=== PATIENT | female | born 1955 | race Caucasian/White ===

== ENCOUNTER → 2018-02-10 | Day surgery (SDC) | payer MEDICARE ==
[~2018-02-10] MED LIST: ALPR0.5T6 PO; ASPI-630 PO; GABA600T2 PO; HYDROmorphone 2 MG/ML VIAL IV PRN; IV RINGERS,LACTATED 1000ML 1,000 ML IV SCH; LIDOCAINE 1% PF 2 ML VIAL. ID PRN; LIDOCAINE 1% PF 2 ML VIAL. ONE; MORPHINE SULFATE 2 MG/ML VIAL. IV PRN; ONDANSETRON PF 4 MG/2 ML VIAL. IV PRN; PROCHLORPERAZINE 10 MG/2 ML VIAL. IV PRN; PROPOFOL 40 ML IV ONE; TRAZ150T49 PO; fentaNYL PF VIAL 100 MCG/2 ML VIAL IV PRN
[2018-02-10 13:55] VITALS: BP 100/54
--- NOTE | 2018-02-11 03:56 | CONS ---
DATE OF CONSULTATION: REFERRING PHYSICIAN: Dr. Phuong Pierre. REASON FOR CONSULTATION: Weight loss. HISTORY OF PRESENT ILLNESS: A 63-year-old female with a past medical history just significant for prior gastric bypass as well as appendectomy, hysterectomy, lysis of adhesions, tonsillectomy, is seen with a 25-pound weight loss for the past 3 months. The patient states that she has bowel habits, they are rather loose and oily in nature. No history of pancreatic disease. The patient is a social drinker. She has had a history of polyps in the past. Last colon exam being more than 5 years. Previously there has been no melena and/or hematochezia. She does have some epigastric tenderness to deep palpation and with ongoing symptoms requests additional evaluation. PAST MEDICAL HISTORY: Anemia, history of colon polyps and status post gastric bypass. PAST SURGICAL HISTORY: Status post appendectomy, hysterectomy, lung surgery, lysis of adhesions, tonsillectomy, weight loss surgery with gastric bypass and breast surgery. ALLERGIES: PENICILLIN AND MORPHINE. MEDICATIONS: Include gabapentin, aspirin, alprazolam and inhalers. FAMILY AND SOCIAL HISTORY: Social drinker and nonsmoker. Family history is significant for coronary artery disease and cancers. REVIEW OF SYSTEMS: Per records. PHYSICAL EXAMINATION: GENERAL: Reveals a well-nourished, well-developed female who is alert and cooperative, in no acute distress. VITAL SIGNS: Temperature 97.5, pulse 102, respirations ____ and pulse ox is 92%. HEENT: Reveals normocephalic and atraumatic head. Pupils and extraocular muscles are not tested. Sclerae anicteric. NECK: Supple. LUNGS: Clear. CARDIOVASCULAR: Reveals an S1, S2 without S3, S4 or appreciable murmur. ABDOMEN: Reveals scaphoid abdomen, normal bowel sounds, without appreciable hepatosplenomegaly. Multiple surgical incisions, epigastric tenderness to deep palpation. EXTREMITIES: Reveals no cyanosis, clubbing or edema. IMPRESSION: Weight loss, history of colonic polyps, status post gastric bypass. Differential includes malabsorption, celiac disease, pancreatitis with steatorrhea, occult malignancy of stomach and/or colon as well as inflammatory bowel disease. We will; therefore, recommend colonoscopy to further assess symptoms. Risks and benefits of the procedure were discussed with the patient including risk of hemorrhage or perforation and is willing to proceed. If this is unrevealing, then draw of pancreatic enzymes, small bowel x-ray and upper GI series would be pursued. TAYLOR FREITAS MD DR: KRISTOPHER/blaine JOB#: [id number] / [id number] PHUONG Solis MD
--- NOTE | 2018-02-11 12:10 | PATHOLOGY ---
[facility] Accession Number: [id number] . 01 Material submitted: . RANDOM COLON BIOPSY . 01 Clinical history: . Weight loss . 02 Diagnosis: Colonic mucosa, random colon biopsies: - No significant pathologic abnormalities. . (JP:vjm;02/11/2018) [facility]/02/11/2018 . 02 Comment: Sections of the random colon biopsy reveal multiple segments of colonic mucosa. There is no evidence of a chronic destructive colitis, lymphocytic colitis, or collagenase colitis. . (JPM:vjm;02/11/2018) . 02 Electronically signed: . Srinath Panda MD, Pathologist NPI- [id number] . 01 Gross description: . The specimen is received in formalin, labeled "Marquita Rodriguez, random colon BX for weight loss", are multiple carrasquillo soft tissues measuring 1.0 x 0.6 x 0.2 cm in aggregate, entirely submitted in A1. ([facility]; 02/10/2018) [facility] . 02 Pathologist provided ICD-10: R63.4 . 02 CPT . 130317 Specimen Comment: A courtesy copy of this report has been sent to Specimen Comment: [phone], . Specimen Comment: Report sent to / DR RUSSELL Specimen Comment: A duplicate report has been generated due to demographic updates. Performed at: 01 [facility] [address], [place] [id number] MD Duc Tierney MD Phone: [phone] Performed at: 02 [facility] [address], [place] [id number] MD Srinath Panda MD Phone: [phone]
== END | disposition home or self-care (01) ==
LOC: SURG 12:07
PROVIDERS: ATTEND Internal Medicine Gastroenterology
DX: K64.0 First degree hemorrhoids (principal); Z88.0 Allergy status to penicillin; Z88.5 Allergy status to narcotic agent; Z86.010 Personal history of colon polyps; Z98.84 Bariatric surgery status; D64.9 Anemia, unspecified; Z90.49 Acquired absence of other specified parts of digestive tract; Z90.710 Acquired absence of both cervix and uterus; Z98.890 Other specified postprocedural states; Z79.82 Long term (current) use of aspirin; Z79.899 Other long term (current) drug therapy; Z72.89 Other problems related to lifestyle; Z82.49 Family history of ischemic heart disease and other diseases of the circulatory system
CPT/HCPCS: 45380; 88305; J2704

== ENCOUNTER → 2018-04-14 | Day surgery (SDC) | payer MEDICARE ==
[~2018-04-14] MED LIST changes: -GABA600T2 PO; +GABA600T7 PO; -HYDROmorphone 2 MG/ML VIAL IV PRN; -LIDOCAINE 1% PF 2 ML VIAL. ONE; +MIDAZOLAM HCL/PF 2 MG/2 ML VIAL. IV PRN; -MORPHINE SULFATE 2 MG/ML VIAL. IV PRN; -ONDANSETRON PF 4 MG/2 ML VIAL. IV PRN; -PROCHLORPERAZINE 10 MG/2 ML VIAL. IV PRN; +PROPOFOL 20 ML IV ONE; -PROPOFOL 40 ML IV ONE
[2018-04-14 14:12] VITALS: BP 145/67
--- NOTE | 2018-04-14 15:07 | CONS ---
DATE OF CONSULTATION: 04/14/2018 REFERRING PHYSICIAN: Panchito Oshea MD. REASON FOR CONSULTATION: Weight loss, abdominal pain. HISTORY OF PRESENT ILLNESS: This is a 63-year-old female with past medical history significant for history of polyps, history of gastric bypass, status post appendectomy, hysterectomy, lung surgery, lysis of adhesions, tonsillectomy, breast surgery who is seen, continued to have weight loss and abdominal pain of 25 pounds since her colonoscopy. There is no history of pancreatic disease. She has been a social drinker. No dysphagia or odynophagia. No melena and/or hematochezia. With ongoing epigastric tenderness, unrevealing colonoscopy, an upper endoscopy is recommended. PAST MEDICAL HISTORY: Anemia, history of polyps, history of gastric bypass. ALLERGIES: PENICILLIN AND MORPHINE. PAST SURGICAL HISTORY: Status post appendectomy, hysterectomy, lung surgery, lysis of adhesions. MEDICATIONS: Presently include alprazolam, aspirin, gabapentin and trazodone. REVIEW OF SYSTEMS: As per records. PHYSICAL EXAMINATION: GENERAL: Reveals a thin female. VITAL SIGNS: Temperature is 97.6, pulse is 60, respirations 20. HEENT: Reveals normocephalic and atraumatic head. Pupils and extraocular muscles are not tested. Sclerae anicteric. NECK: Supple. LUNGS: Clear. CARDIOVASCULAR: Reveals an S1, S2 without S3, S4 or appreciable murmur. ABDOMEN: Reveals a soft abdomen, normal bowel sounds without appreciable hepatosplenomegaly with epigastric tenderness to deep palpation. EXTREMITIES: Reveals no cyanosis, clubbing or edema. IMPRESSION AND PLAN: Abdominal pain, status post cholecystectomy, etiology is to be determined. Differential includes malignancy, peptic ulcer disease, mesenteric atherosclerosis, partial small-bowel obstruction, celiac disease. We therefore recommend upper endoscopy. If this is unrevealing, then further consideration to small bowel series and CT angiogram would be pursued. TAYLOR FREITAS MD DR: KRISTOPHER/nts JOB#: [id number] / [id number]
== END | disposition home or self-care (01) ==
LOC: SURG 12:37
PROVIDERS: ATTEND Internal Medicine Gastroenterology
DX: R10.13 Epigastric pain (principal); Z98.84 Bariatric surgery status; Z90.49 Acquired absence of other specified parts of digestive tract; Z86.010 Personal history of colon polyps; Z90.710 Acquired absence of both cervix and uterus; Z98.890 Other specified postprocedural states; Z72.89 Other problems related to lifestyle; Z88.0 Allergy status to penicillin; Z88.5 Allergy status to narcotic agent; Z79.82 Long term (current) use of aspirin; Z79.899 Other long term (current) drug therapy; Z88.8 Allergy status to other drugs, medicaments and biological substances
CPT/HCPCS: 43235; J2704

== ENCOUNTER → 2018-04-21 | Outpatient (CLI) | payer MEDICARE ==
[2018-04-14 14:12] VITALS: BP 145/67
[~2018-04-21] MED LIST changes: +GABA600T2 PO; -GABA600T7 PO; +IOHEXOL 350 MG/ML 100 ML VIAL. IV ONE; -IV RINGERS,LACTATED 1000ML 1,000 ML IV SCH; -LIDOCAINE 1% PF 2 ML VIAL. ID PRN; -MIDAZOLAM HCL/PF 2 MG/2 ML VIAL. IV PRN; -PROPOFOL 20 ML IV ONE; -fentaNYL PF VIAL 100 MCG/2 ML VIAL IV PRN
--- NOTE | 2018-04-21 15:40 | RAD ---
CTA of the abdomen with contrast, 04/21/2018: HISTORY: Abdominal pain and bloating, previous gastric bypass Multidetector CT imaging was performed following an IV bolus injection of iodinated contrast material. Multiplanar reconstructions were produced including MIP images and 3-D volume rendered reconstructions of the arteries. There is moderate aortoiliac calcific plaquing without evidence of aneurysm or dissection. The celiac artery origin is widely patent. There is only slight kinking of the proximal celiac artery. The superior mesenteric artery origin is widely patent. A patent inferior mesenteric artery is not visible arising from the aorta. The inferior mesenteric artery is visible distally, presumably opacified via collateral circulation. There are single patent renal arteries bilaterally without evidence of ostial stenosis. There is bilateral renal cortical scarring. A 6 mm nonobstructing calculus is identified within the left kidney. There are surgical sutures related to the stomach. The gallbladder is surgically absent. Large calcified granulomata are noted posteriorly in the left lung base. IMPRESSION: 1. Aortoiliac calcific plaquing. 2. No significant celiac or superior mesenteric arterial stenosis 3. 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 PQRS Compliance Statement: One or more of the following individualized dose reduction techniques were utilized for this examination: 1. Automated exposure control 2. Adjustment of the mA and/or kV according to patient size 3. Use of iterative reconstruction technique Electronically signed by: Akhil Burr MD (04/21/2018 3:35 PM) [facility]
--- NOTE | 2018-04-21 16:25 | RAD ---
Procedure: Ultrasound and fluoroscopically guided placement of right internal jugular central venous catheter04/21/2018 4:19 PM Clinical Indication: VENOUS ACCESS Discussion: The risks and benefits of the procedure were discussed the patient and/or their claims service representative. Informed consent was obtained. A timeout procedure was performed. All elements of maximal sterile barrier technique including the use of a cap, mask, sterile gown, sterile gloves, large sterile sheet, appropriate hand hygiene, and 2% chlorhexidine for cutaneous antisepsis (or acceptable alternative antiseptic per current guidelines) were followed for this procedure. The patient was prepped and draped in the usual sterile fashion. Ultrasound interrogation of the right neck revealed patency and compressibility of the right internal jugular vein. A 21-gauge micropuncture was then used to gain access to this vein under ultrasound guidance. A hard copy ultrasound image was recorded. A guidewire was advanced centrally. 5 [place] sheath was placed. Over a wire following dilatation, a triple-lumen central venous catheter was advanced centrally. Catheter tip was positioned at the cavoatrial junction under fluoroscopy. Catheter flushes and aspirates normally. Follow-up chest radiograph demonstrates tip at the cavoatrial junction. Catheter secured in place and a sterile dressing was applied. No immediate complications were identified. Total fluoroscopy time: 0.6 seconds: Dose area product: 1 Gycm2 Impression: Successful ultrasound-guided placement of right internal jugular triple-lumen central venous catheter
== END | disposition home or self-care (01) ==
LOC: CT 09:50
PROVIDERS: ATTEND Internal Medicine Gastroenterology
DX: Z45.2 Encounter for adjustment and management of vascular access device (principal); I70.0 Atherosclerosis of aorta; K55.069 Acute infarction of intestine, part and extent unspecified; R14.0 Abdominal distension (gaseous); I48.91 Unspecified atrial fibrillation; I50.9 Heart failure, unspecified; R10.9 Unspecified abdominal pain; J45.909 Unspecified asthma, uncomplicated; F17.200 Nicotine dependence, unspecified, uncomplicated; Z88.0 Allergy status to penicillin; Z91.048 Other nonmedicinal substance allergy status; Z88.8 Allergy status to other drugs, medicaments and biological substances; Z79.01 Long term (current) use of anticoagulants; Z86.73 Personal history of transient ischemic attack (TIA), and cerebral infarction without residual deficits; Z90.49 Acquired absence of other specified parts of digestive tract; Z90.710 Acquired absence of both cervix and uterus; Z98.890 Other specified postprocedural states; Z98.84 Bariatric surgery status
CPT/HCPCS: 36556; 74175; 76937; 77001; C1892; Q9967